=== PATIENT | male | born 1970 | race Hispanic/Latino ===

== ENCOUNTER → 2019-07-02 | Day surgery (SDC) | payer OTHER ==
[~2019-07-02] MED LIST: Ammonium Lactate 12% Lotion TOP; FENTANYL CITRATE/PF 100MCG/2 ML INJ ONE; HYOSCYAMINE 0.125 MG TAB ONE; LACTULOSE20 GM/30 M PO; LEVOTHYROXINE50 MCG PO; MIDAZOLAM HCL 5MG/ML 2ML VIAL ONE; PROPOFOL IV EMULSION 10 MG/ML 50 ML VIAL ONE; XIFAXAN550 MG PO; vit d PO
--- OUTSIDE RECORDS SUMMARY | 2019-07-02 07:12 | XMS REPORT ---
Author Author [facility] Address Unknown Phone Unavailable Care Team Providers Care Hog Trader Name Role Phone FRANSISCO STOLL Unavailable Unavailable Britni WEINSTEIN Unavailable Unavailable Problems This patient has no known problems. Allergies, Adverse Reactions, Alerts This patient has no known allergies or adverse reactions. Medications This patient has no known medications. Results Test Description Test Time Test Comments Text Results Atomic Results Result Comments LIVER SPLEEN IMAGE 2019-06-13 11:53:00 [place] [address] Patient Name: ANGELINA HALL MR #: [id number] : 1970 Age/Sex: 48/M Req #: [id number] [facility] Physician: FRANSISCO STOLL MD Ordered by: JEANNE STOLL MD Report #: [id number] Location: MED/SURG3 Room/Bed: [facility] Procedure: [id number] NM/LIVER SPLEEN IMAGE Exam Date: 06/13/19 Exam Time: 1015 REPORT STATUS: Signed Liver-Spleen Scan Clinical information: 48 M with shaking and disorientation x3 days; concern for liver disease Comparison: Abdominal ultrasound 04/12/2019; CT abdomen/pelvis 04/11/2019 Report: Following intravenous administration of 6 mCi of Tc-99 and sulfur colloid, images of the upper abdomen and lower chest were obtained in multiple projections. The liver mildly reduced in size. The spleen appears normal in size. Distribution of tracer activity is heterogeneous throughout the hepatic parenchyma with two focal areas of relatively increased tracer in the right hepatic lobe. Distribution of tracer in the spleen in homogenous. Increased tracer activity is prominent in marrow and mildly increased tracer is seen in the lungs diffusely. No apparent shift of tracer from the liver is present to suggest hypersplenism. Impression: 1. Findings consistent with moderate cirrhosis of the liver given size of liver and extent of colloid shift to the marrow and lungs. 2. Foci of increased Kupfer cell a ctivity in the right hepatic lobe consistent with foci of liver parenchyma regeneration. 3. Hypersplenism is not present. Signed by: Dr. Kecia Gonzalez M.D. on 06/13/2019 12:13 PM Dictated By: KECIA GONZALEZ MD 121 Transcribed By: KIMBERLY on 06/13/191212 COPY TO: JEANNE STOLL MD CHEST SINGLE (PORTABLE) 2019-06-10 18:54:00 [place] [address] Patient Name: ANGELINA HALL MR #: [id number] : 1970 Age/Sex: 48/M Req #: [id number] Adm Physician: Ordered by: AUDRA RAMIREZ DO Report #: [id number] Location: ER Room/Bed: Procedure: [id number] DX/CHEST SINGLE (PORTABLE) Exam Date: 06/10/19 Exam Time: 1829 REPORT STATUS: Signed EXAM: CHEST SINGLE (PORTABLE) DATE: 06/10/2019 5 :34 PM INDICATION: Sepsis, weakness ORDER PLACED BY [id number] Y COMPARISON: Chest x-ray, 04/15/2019 FINDINGS: Lines and tubes: None. Previous left PICC is no longer seen. Heart size normal. No focal pulmonary opacity, pleural effusion or pneumothorax. Upper abdomen unremarkable. No acute bony abnormality. IMPRESSION: No evidence for acute disease. Signed by: Dr. Rush Tafoya M.D. on 06/10/2019 6:55 PM Dictated By: RUSH TAFOYA MD 54 Transcribed By: KIMBERLY on 06/10/191854 COPY TO: AUDRA RAMIREZ DO CT BRAIN WO 2019-06-10 18:49:00 [place] [address] Patient Name: ANGELINA HALL MR #: [id number] : 1970 Age/Sex: 48/M Req #: [id number] Adm Physician: Ordered by: AUDRA RAMIREZ DO Report #: [id number] Location: ER Room/Bed: Procedure: [id number] CT/CT BRAIN WO Exam Date: 06/10/19 Exam Time: 1830 REPORT STATUS: Signed History: Altered mental status, weakness Comparison studies: Brain MRI on 03/2019 Technique: Axial images were obtained from the skull base to the vertex. Coronal and sagittal reconstructions obtained from the axial data. Dose modulation, iterative reconstruction, and/or weight based adjustment of the mA/kV was utilized to reduce the radiation dose to as low as reasonably achievable. Intravenous contrast: None Findings: Scalp/skull: No abnormalities. No fractures, blastic or lytic lesions. Extra-axial spaces: No masses. No fluid collections. Brain sulci: Appropriate for age. Ventricles: Normal in size and configuration. No hydrocephalus. Parenchyma: No abnormal densities. No masses, hemorrhage, acute or chronic cortical vascular insults. Sellar/suprasellar region: No abnormalities Craniocervical junction: Patent foramen magnum. No Chiari one malformation. Incidental findings: None. IMPRESSION: 1. No abnormalities. 2. No changes when compared to the MRI on 04/12/2019. Signed by: Dr. Denzel Myles M.D. on 06/10/2019 6:51 PM Dictated By: DENZEL MYLES MD, MD 50 Transcribed By: KIMBERLY on 06/10/191850 COPY TO: AUDRA RAMIREZ DO CHEST XRAY LINE PLACEMENT 2019-04-15 19:03:00 [place] [address] Patient Name: ANGELINA HALL MR #: [id number] : 1970 Age/Sex: 48/M Req #: [id number] Adm Physician: EDUIN WEINSTEIN MD Ordered by: RUTH STRONG MD Report #: [id number] Location: ICU Room/Bed: ICU [facility] Procedure: [id number] DX/CHEST XRAY LINE PLACEMENT Exam Date: Exam Time: REPORT STATUS: Signed EXAMINATION: CHEST XRAY LINE PLACEMENT COMPARISON: C T chest and chest x-ray 04/11/2019 INDICATION: Fever, sepsis picc line placement DISCUSSION: Frontal view of the chest obtained at 1848 hours. HEART AND MEDIASTINUM: The heart is enlarged LINES: Left PICC line terminates in the SVC without pneumothorax. LUNGS: Low lung volumes. No pneumonia or pulmonary edema. PLEURA: Left costophrenic angle is sharp. Right lateral costophrenic angle was not included on the image. BONES AND SOFT TISSUES: No focal osseous lesion. The soft tissues are normal. IMPRESSION: Left PICC line terminates in the SVC without pneumothorax. Stable cardiomegaly. No evidence of CHF. No new cardiopulmonary process. Signed by: Dr. Jamee Knight MD on 04/15/2019 7:07 PM Dictated By: JAMEE KNIGHT MD 06 Transcribed By: KIMBERLY on 04/15/191906 COPY TO: RUTH STRONG MD MRI BRAIN WO 2019-04-12 16:18:00 [place] [address] Patient Name: ANGELINA HALL MR #: [id number] : 1970 Age/Sex: 48/M Req #: [id number] Adm Physician: EDUIN WEINSTEIN MD Ordered by: EDUIN WEINSTEIN MD Report #: [id number] Location: ICU Room/Bed: ICU [facility] Procedure: [id number] MRI/MRI BRAIN WO Exam Date: Exam Time: REPORT STATUS: Signed EXAMINATION: MRI of the brain without contrast. HISTORY: Alteration of consciousness, elevated liver enzymes. COMPARISON: Head CT of 04/11/2019. TECHNIQUE: Sagittal T2; axial DWI, T2, FLAIR, T1-IR, T2 gradient echo; coronal FLAIR. IMAGE QUALITY: Motion artifact limits evaluation of some of the sequences. FINDINGS: Parenchyma: 1. No abnormal signal intensity 2. No mass, hemorrhage, acute or chronic infarcts. Skull/scalp: Minimal left parietal and bilateral occipital soft tissues/scalp swelling may be related to trauma or edema. No underlying fracture, which is better evaluated on the prior head CT performed on 04/11/2019 . Vessels: Expected flow voids present in the major arteries and dural sinuses. Extra-axial spaces: No abnormal signal intensity or mass effect. Brain volume: Within normal limits for age. Ventricles: No hydrocephalus or displacement. Foramen magnum: Unremarkable. Sella: Unremarkable. Paranasal / mastoid sinuses: No significant inflammatory disease. IMPRESSION: 1. No intracranial abnormalities, particularly no acute infarct. 2. Nonspecific minimal scalp swelling as above. Signed by: Dr. Bobbi Rincon M.D. on 04/12/2019 4:23 PM Dictated By: BOBBI RINCON MD 22 Transcribed By: KIMBERLY on 04/12/191622 COPY TO: EDUIN WEINSTEIN MD US ABDOMEN COMPLETE 2019-04-12 11:49:00 [place] [address] Patient Name: ANGELINA HALL MR #: [id number] : 1970 Age/Sex: 48/M Req #: [id number] Adm Physician: EDUIN WEINSTEIN MD Ordered by: JANET MATUTE MD Report #: [id number] Location: ICU Room/Bed: ICU [facility] Procedure: [id number] US/US ABDOMEN COMPLETE Exam Date: 04/12/19 Exam Time: 950 REPORT STATUS: Signed EXAM: US ABDOMEN COMPLETE DATE: 04/12/2019 12:00 AM INDICATION: Abnormal liver enzymes COMPARISON: CT abdomen and pelvis of 04/11/2019 TECHNIQUE: Transverse and longitudinal ramirez scale and color doppler sonographic images of the upper abdomen were obtained. FINDINGS: LIVER 14.8 cm in the right midclavicular line. Increased echogenicity of the liver with normal contour, no masses. SPLEEN 14.1 cm in maximum diameter. Normal echogenicity, no masses. GALLBLADDER No gallbladder wall thickening, distension, stone, or pericholecystic fluid. Negative reported sonographic Blake's sign. The gallbladder wall measures 3mm BILE DUCTS No intra nor extra-hepatic biliary dilation. Common bile duct measures 5mm PANCREAS: Visualized portions are normal. RIGHT KIDNEY: 11.2 cm Echogenicity: Normal Collecting System: No hydronephrosis Stones: None Cyst/Mass: None LEFT KIDNEY: 13.4 cm Echogenicity: Normal Collecting System: No hydronephrosis Stones: None Cyst/Mass: None VESSELS: Aorta: Visualized portions are within normal size limits Inferior Vena Cava: Visualized portions are normal Main Portal Vein: 0.9 cm, normal size with hepatopetal flow. FREE FLUID: None IMPRESSION: No cholelithiasis or sonographic evidence of cholecystitis. Hepatic steatosis. Splenomegaly. Signed by: Tatiana Echevarria MD on 04/12/2019 11:51 AM Dictated By: TATIANA ECHEVARRIA MD 1151 Transcribed By: KIMBELRY on 04/12/19 1151 COPY TO: JANET MATUTE MD CT CHEST W 2019-04-11 18:39:00 [place] [address] Patient Name: ANGELINA HALL MR #: [id number] : 1970 Age/Sex: 48/M Req #: [id number] Adm Physician: Ordered by: VAMSI WILLARD MD Report #: [id number] Location: ER Room/Bed: Procedure: [id number] CT/CT CHEST W Exam Date: Exam Time: REPORT STATUS: Signed EXAM: CT Chest, Abdomen and Pelvis WITH contrast INDICATION: SEP SIS, ELEV BILI/AST COMPARISON: Chest radiograph 04/11/2019 TECHNIQUE: Chest, abdomen and pelvis were scanned utilizing a multidetector helical scanner from the lung apex to the ischial tuberosities after administration of IV contrast. Coronal and sagittal reformations were obtained. Routine protocol was performed. Scan was performed when during portal venous phase. IV CONTRAST: 150 mL of Isovue-370 ORAL CONTRAST: None RADIATION DOSE: Total DLP: 1547 mGy*cm Estimated effective dose: DLP x 0.015 mSv COMPLICATIONS: None FINDINGS: LINES and TUBES: None. LUNGS AND AIRWAYS: The lungs and airways are normal. PLEURA: The pleural spaces are clear. HEART AND MEDIASTINUM: The thyroid gland is normal. No mediastinal, hilar or axillary lymphadenopathy. The right atrium is enlarged. The remaining cardiac Nhan appear normal in size. There is no pericardial effusion. The thoracic aorta is unremarkable. No coronary artery calcifications. The main pulmonary artery mildly enlarged, measuring 3.7 cm in diameter and suggestive of pulmonary hypertension. The thoracic aorta and pulmonary arteries are unremarkable. HEPATOBILIARY: No focal hepatic lesions. No biliary ductal dilation. GALLBLADDER: No radio-opaque stones or sludge. No wall thickening. SPLEEN: No splenomegaly. PANCREAS: No focal masses or ductal dilatation. ADRENALS: No adrenal nodules KIDNEYS/URETERS: Kidneys enhance symmetrically. No hydronephrosis. No cystic or solid mass lesions. No stones. Patchy hypodensity throughout both kidneys, some of which appears to represent an artifact while others are highly concerning for pyelonephritis. No surrounding fat stranding or fluid collections. GI TRACT: The stomach is collapsed and difficult to evaluate. No abnormal distention, wall thickening, or evidence of bowel obstruction. Appendix is normal. PELVIC ORGANS/BLADDER: The urinary bladder is collapsed and associated with diffuse severe wall thickening suggestive of chronic inflammation/infection. LYMPH NODES: No lymphadenopathy. VESSELS: Unremarkable. PERITONEUM / RETROPERITONEUM: No free air or fluid. BONES: Unremarkable. SOFT TISSUES: Bilateral gynecomastia. Moderate fat-containing right inguinal hernia . There is tenting of the anterior right lateral wall of the urinary bladder within the herniated sac. IMPRESSION: 1. Patchy hypoperfusion of both kidneys may be due to artifact, but however given the findings in the urinary bladder, this may represent mild bilateral pyelonephritis. Correlate with labs. No visualized calcified stones. 2. Otherwise, no acute abnormalities in the chest, abdomen, or pelvis. 3. Enlarged pulmonary arteries and right atrium suggestive of intracardiac shunt. If this finding is unknown to the patient, recommend further evaluation with echocardiogram. Signed by: Dr. Narda Dennis M.D. on 04/11/2019 6:51 PM Dictated By: NARDA DENNIS MD 50 Transcribed By: KIMBERLY on 04/11/191850 COPY TO: VAMSI WILLARD MD CT ABDOMEN/PELVIS W 2019-04-11 18:39:00 [place] [address] Patient Name: ANGELINA HALL MR #: [id number] : 1970 Age/Sex: 48/M Req #: [id number] Adm Physician: Ordered by: VAMSI WILLARD MD Report #: [id number] Location: ER Room/Bed: Procedure: [id number] CT/CT ABDOMEN/PELVIS W Exam Date: Exam Time: REPORT STATUS: Signed EXAM: CT Chest, Abdomen and Pelvis WITH contrast INDICATION: SEPSIS, ELEV BILI/AST COMPARISON: Chest radiograph 04/11/2019 TECHNIQUE: Chest, abdomen and pelvis were scanned utilizing a multidetector helical scanner from the lung apex to the ischial tuberosities after administration of IV contrast. Coronal and sagittal reformations were obtained. Routine protocol was performed. Scan was performed when during portal venous phase. IV CONTRAST: 150 mL of Isovue-370 ORAL CONTRAST: None RADIATION DOSE: Total DLP: 1547 mGy*cm Estimated effective dose: DLP x 0.015 mSv COMPLICATIONS: None FINDINGS: LINES and TUBES: None. LUNGS AND AIRWAYS: The lungs and airways are normal. PLEURA: The pleural spaces are clear. HEART AND MEDIASTINUM: The thyroid gland is normal. No mediastinal, hilar or axillary lymphadenopathy. The right atrium is enlarged. The remaining cardiac Nhan appear normal in size. There is no pericardial effusion. The thoracic aorta is unremarkable. No coronary artery calcifications. The main pulmonary artery mildly enlarged, measuring 3.7 cm in diameter and suggestive of pulmonary hypertension. The thoracic aorta and pulmonary arteries are unremarkable. HEPATOBILIARY: No focal hepatic lesions. No biliary ductal dilation. GALLBLADDER: No radio-opaque stones or sludge. No wall thickening. SPLEEN: No splenomegaly. PANCREAS: No focal masses or ductal dilatation. ADRENALS: No adrenal nodules KIDNEYS/URETERS: Kidneys enhance symmetrically. No hydronephrosis. No cystic or solid mass lesions. No stones. Patchy hypodensity throughout both kidneys, some of which appears to represent an artifact while others are highly concerning for pyelonephritis. No surrounding fat stranding or fluid collections. GI TRACT: The stomach is collapsed and difficult to evaluate. No abnormal distention, wall thickening, or evidence of bowel obstruction. Appendix is normal. PELVIC ORGANS/BLADDER: The urinary bladder is collapsed and associated with diffuse severe wall thickening suggestive of chronic inflammation/infection. LYMPH NODES: No lymphadenopathy. VESSELS: Unremarkable. PERITONEUM / RETROPERITONEUM: No free air or fluid. BONES: Unremarkable. SOFT TISSUES: Bilateral gynecomastia. Moderate fat-containing right inguinal hernia. There is tenting of the anterior right lateral wall of the urinary bladder within the herniated sac. IMPRESSION: 1. Patchy hypoperfusion of both kidneys may be due to artifact, but however given the findings in the urinary bladder, this may represent mild bilateral pyelonephritis. Correlate with labs. No visualized calcified stones. 2. Otherwise, no acute abnormalities in the chest, abdomen, or pelvis. 3. Enlarged pulmonary arteries and right atrium suggestive of intracardiac shunt. If this finding is unknown to the patient, recommend further evaluation with echocardiogram. Signed by: Dr. Narda Dennis M.D. on 04/11/2019 6:51 PM Dictated By: NARDA DENNIS MD 50 Transcribed By: KIMBERLY on 04/11/191850 COPY TO: VAMSI WILLARD MD CHEST SINGLE (PORTABLE) 2019-04-11 17:28:00 [place] [address] Patient Name: ANGELINA HALL MR #: [id number] : 1970 Age/Sex: 48/M Req #: [id number] Adm Physician: Ordered by: VAMSI WILLARD MD Report #: [id number] Location: ER Room/Bed: Procedure: [id number] DX/CHEST SINGLE (PORTABLE) Exam Date: 04/11/19 Exam Time: 1631 REPORT STATUS: Signed EXAMINATION: CHEST SINGLE (PORTABLE) INDIC ATION: AMS, FEVER [id number] COMPARISON: None FINDINGS: AP view TUBES and LINES: None. LUNGS: Lungs are well inflated. Nonspecific mild increased reticular opacities in the lungs with bilateral hilar peribronchial wall thickening. No lobar consolidations. PLEURA: No pleural effusion or pneumothorax. HEART AND MEDIASTINUM: The cardiac silhouette is prominent likely related to portable technique. BONES AND SOFT TISSUES: No acute osseous lesion. Soft tissues are unremarkable. UPPER ABDOMEN: No free air under the diaphragm. IMPRESSION: Given patient's fever, findings may reflect acute viral pneumonia. Recommend follow-up chest radiograph in 4-6 weeks. Signed by: Dr. Narda Dennis M.D. on 04/11/2019 5:31 PM Dictated By: NARDA DENNIS MD 30 Transcribed By: KIMBERLY on 04/11/191730 COPY TO: VAMSI WILLARD MD CT BRAIN WO 2019-04-11 16:52:00 [place] [address] Patient Name: ANGELINA HALL MR #: [id number] : 1970 Age/Sex: 48/M Req #: [id number] [facility] Physician: Ordered by: VAMSI WILLARD MD Report #: [id number] Location: Room/Bed: Procedure: [id number] CT/CT BRAIN WO Exam Date: 04/11/19 Exam Time: 1631 REPORT STATUS: Signed EXAMINATION: Head CT HISTORY: Alteration of consciousnes s, unresponsive, blood in the oral cavity COMPARISON: None. TECHNIQUE: Multidetector axial images were obtained without contrast from the foramen magnum to the vertex . The images were reconstructed using brain and bone algorithms. Thin section brain images were reformatted into coronal and sagittal planes. Image quality: Motion/streaking artifact limits the evaluation of the skull base and posterior cranial fossa. Dose modulation, iterative reconstruction, and/or weight based adjustment of the mA/kV was utilized to reduce the radiation dose to as low as reasonably achievable. FINDINGS: Parenchyma: 1. No abnormal densities. 2. No mass or hemorrhage. No CT evidence of acute territorial vascular insult. Extra-axial spaces:No abnormal density. No extra-axial fluid collections Brain volume: Normal for age. Ventricles: No hydrocephalus or displacement. Arteries: No density suggestive of thrombus. Dural sinuses: No abnormal density. Foramen magnum: No mass, Chiari malformation, or basilar invagination. Sella: No obvious mass. Paranasal/mastoid sinuses: Imaged portions unremarkable. Skull/Scalp: No lytic or blastic lesions. No fractures. IMPRESSION: No intracranial abnormalities. Signed by: Dr. Bobbi Rincon M.D. on 04/11/2019 4:54 PM Dictated By: BOBBI RINCON MD 53 Transcribed By: KIMBERLY on 04/11/191653 COPY TO: VAMSI WILLARD MD
[2019-07-02 10:25] VITALS: BP 127/77
[2019-07-02 17:03] LABS: C DIFFICILE TOXIN A&B AMP PROB NEGATIVE (NEGATIVE); WBC,FECAL (FECAL LACTOFERRIN) NEGATIVE (NEGATIVE)
--- NOTE | 2019-07-19 08:03 | Operative Report ---
DATE OF PROCEDURE: 07/02/2019 SURGEON: Jun Noyola MD PROCEDURE: EGD with biopsies and a colonoscopy with biopsies INDICATIONS FOR EGD: Anemia, blood in stool. INDICATIONS FOR COLONOSCOPY: Anemia, blood in stools. MEDICATIONS: The patient was done under MAC. Please see anesthesiologist's note. PROCEDURE IN DETAIL: With the patient in left lateral decubitus position, a flexible fiberoptic Olympus gastroscope was introduced into the esophagus under direct visualization without any difficulty. There was some patchy erythema noted in distal esophagus. The scope was then advanced with ease into the stomach. Mucosa overlying the antrum and the body revealed some patchy erythema and low-grade edema and biopsies were obtained sent to stain for H. pylori. The pylorus was of normal contour and shape. It was intubated with ease and the scope was advanced all the way to the second portion of the duodenum. The scope was then withdrawn slowly and the mucosa overlying the proximal second portion and duodenal bulb grossly were unremarkable. Biopsies were obtained to rule out sprue. The scope was then withdrawn back into the stomach and retroflexed and mucosa overlying the fundus and the cardia appeared to be within normal limits. The scope was then straightened out. It was subsequently withdrawn. The patient tolerated the procedure well. IMPRESSION: 1. Distal esophagitis, mild. 2. Gastritis, biopsied. Biopsies sent to stain for Helicobacter pylori. 3. Rule out sprue. PLAN: Follow up histology. Initiate Protonix 40 mg 1 p.o. q.a.m. a.c. The patient was then turned around. After adequate lubrication of the anal canal, a flexible fiberoptic Olympus colonoscope was inserted into the rectum with ease and advanced all the way to the cecum. The ileocecal valve appeared to be within normal limits as well as the cecum and the ileocecal valve was intubated and the scope was advanced into the terminal ileum. Biopsies were obtained. The scope was then withdrawn back into the colon. It was then withdrawn slowly. Mucosa overlying the ascending and the transverse appeared to be within normal limits. There was some patchy mild inflammatory changes noted in the left colon as well as the rectum and random biopsies were obtained. The scope was then retroflexed into the distal rectum and small internal hemorrhoids were noted, none of which was actively bleeding. The scope was then straightened out. It was subsequently withdrawn. The patient tolerated the procedure well. IMPRESSION: 1. Colitis, patchy, mild, primarily involving the left colon. 2. Proctitis, mild. 3. Internal hemorrhoids, none actively bleeding. PLAN: Follow up histology. Follow up stool studies. Check IBD panel, CRP, and sedimentation rate. MD FREDRICK Levin/MODL /[id number] cc: Jacques Urias DO
== END | disposition home or self-care (01) ==
LOC: OR 07:10
PROVIDERS: ATTEND Internal Medicine Gastroenterology
DX: D64.9 Anemia, unspecified (principal); K29.50 Unspecified chronic gastritis without bleeding; K29.80 Duodenitis without bleeding; K52.9 Noninfective gastroenteritis and colitis, unspecified; K20.9 Esophagitis, unspecified; K62.89 Other specified diseases of anus and rectum; K64.8 Other hemorrhoids; R19.5 Other fecal abnormalities; K74.60 Unspecified cirrhosis of liver; R03.0 Elevated blood-pressure reading, without diagnosis of hypertension; E03.9 Hypothyroidism, unspecified; Z68.36 Body mass index [BMI] 36.0-36.9, adult
CPT/HCPCS: 36415; 43239; 45380; 83630; 83993; 85651; 86140; 86256; 86671; 87045; 87177; 87328; 87493; J2250; J2704; J3010; 45378

== ENCOUNTER 2019-07-06 13:04 | Inpatient (IN) | payer OTHER ==
[~2019-07-06] VITALS: Ht 167.6 cm; Wt 99.8 kg
[~2019-07-06 13:04] MED LIST changes: -Ammonium Lactate 12% Lotion TOP; -FENTANYL CITRATE/PF 100MCG/2 ML INJ ONE; -HYOSCYAMINE 0.125 MG TAB ONE; -LACTULOSE20 GM/30 M PO; -MIDAZOLAM HCL 5MG/ML 2ML VIAL ONE; -PROPOFOL IV EMULSION 10 MG/ML 50 ML VIAL ONE; -XIFAXAN550 MG PO
[2019-07-06 13:32] LABS: BASOPHILS % 1.1 % (0.0-1.0); EOSINOPHILS # (AUTO) 0.1 (0.0-0.4); EOSINOPHILS % 2.2 % (0.0-6.0); HEMATOCRIT 35.8 % (38.2-49.6); HEMOGLOBIN 13.1 g/dL (14.0-18.0); LYMPHOCYTES # (AUTO) 1.2 (1.0-3.2); LYMPHOCYTES % 33.1 % (18.0-39.1); MEAN CORPUSCULAR HEMOGLOBIN 34.2 pg (28-32); MEAN CORPUSCULAR HGB CONC 36.6 g/dL (31-35); MEAN CORPUSCULAR VOLUME 93.5 fL (81-99); MONOCYTES # (AUTO) 0.2 (0.2-0.8); MONOCYTES % 6.3 % (4.4-11.3); NEUTROPHILS # (AUTO) 2.1 (2.1-6.9); NEUTROPHILS % 56.8 % (38.7-80.0); PLATELET COUNT 89 x10e3/uL (140-360); RED BLOOD COUNT 3.83 x10e6/uL (4.3-5.7); RED CELL DISTRIBUTION WIDTH 13.1 % (11.7-14.4)
[2019-07-06 13:45] LABS: INR 1.17; PROTHROMBIN TIME 15.7 seconds (11.9-14.5)
[2019-07-06 13:46] LABS: PARTIAL THROMBOPLASTIN TIME 40.5 seconds (23.8-35.5)
[2019-07-06 13:50] LABS: ALANINE AMINOTRANSFERASE 15 IU/L (0-55); ALBUMIN 3.7 g/dL (3.5-5.0); ALKALINE PHOSPHATASE 84 IU/L (40-150); ANION GAP 10.8 mmol/L (8-16); BLOOD UREA NITROGEN 13 mg/dL (7-26); BUN/CREATININE RATIO 17 (6-25); CALCIUM 8.8 mg/dL (8.4-10.2); CARBON DIOXIDE 29 mmol/L (22-29); CHLORIDE 106 mmol/L (98-107); CREATINE KINASE 143 IU/L (30-200); CREATININE, SERUM 0.76 mg/dL (0.72-1.25); EST GLOMERULAR FILTRATION RATE > 60 ML/MIN (60-); GLUCOSE 105 mg/dL (74-118); POTASSIUM 3.8 mmol/L (3.5-5.1); SODIUM 142 mmol/L (136-145)
--- NOTE | 2019-07-06 14:29 | Diagnostic Imaging Report ---
History: Weakness Comparison studies: None Technique: Axial images were obtained from the skull base to the vertex. Coronal and sagittal reconstructions obtained from the axial data. Dose modulation, iterative reconstruction, and/or weight based adjustment of the mA/kV was utilized to reduce the radiation dose to as low as reasonably achievable. Findings: PA and hardening artifact limits the evaluation at the inferior images. Scalp/skull: No abnormalities. No fractures, blastic or lytic lesions. Extra-axial spaces: No masses. No fluid collections. Brain sulci: Appropriate for age. Ventricles: Normal in size and configuration. No hydrocephalus. Parenchyma: No abnormal densities. No masses, hemorrhage, acute or chronic cortical vascular insults. Sellar/suprasellar region: No abnormalities Craniocervical junction: Patent foramen magnum. No Chiari one malformation. IMPRESSION: No abnormalities . Signed by: DR Jorge Estrella M.D. on 07/06/2019 2:26 PM
--- NOTE | 2019-07-06 14:33 | Diagnostic Imaging Report ---
TECHNIQUE: Frontal view of the chest. INDICATION: ^WEAK ^[id number] ^1350 COMPARISON: None. IMPRESSION: Lines and hardware: None. Heart and mediastinum: Unremarkable. Lungs and pleura: No focal airspace consolidation. No pleural effusion. No pneumothorax. Soft tissues and bones: No acute abnormality. Signed by: Cooper Strong MD on 07/06/2019 2:29 PM
--- NOTE | 2019-07-06 15:00 | NUR ---
pt arrived to unit, via stretcher, resp even and unlabored at this time, pt unable to make needs known at this time, pt is a poor historian.
--- NOTE | 2019-07-06 15:00 | NUR ---
bed in lowest position, bed rails up x2, call light in reach, will cont to monitor.
[2019-07-06 16:30] VITALS: BP 142/86
[2019-07-06] MEDS ORDERED: ONDANSETRON HCL INJ 2MG/ML 2ML 2 MG/ML VIAL IV PRN (16:45)
[2019-07-06] MEDS ORDERED: ACETAMINOPHEN 325 MG TAB PO PRN (16:45)
[2019-07-06] MEDS ORDERED: LACTULOSE SYRUP 20 GM/30 ML UDC PO SCH (17:00)
[2019-07-06 19:15] VITALS: BP 182/88
--- NOTE | 2019-07-06 19:15 | NUR ---
attempted to complete initial nursing admit assessment. difficult obtaining some information due to patient altered mental status.
--- NOTE | 2019-07-06 19:15 | NUR ---
patient received lying quietly in bed. patient responsive to verbal stimuli. no signs of pain/discomfort. pm assessment complete. side rails up x 3. bed alarm on for safety.
--- NOTE | 2019-07-06 19:40 | NUR ---
report given to oncoming nurse ,walking rounds complete.
[2019-07-06 20:00] VITALS: BP 179/84
--- NOTE | 2019-07-06 20:20 | NUR ---
Spoke to pt family member pt. Mother received mas much information as possible. pt family member stated pt is unable to answer anything about his self.
[2019-07-06] MEDS: HYDRALAZINE HCL 20 MG/ML VIAL IV PRN (20:40)
[2019-07-06 21:47] VITALS: BP 182/88
[2019-07-07] VITALS (7 sets, daily range): BP systolic 139–172; BP diastolic 63–86
[2019-07-07] MEDS: HYDRALAZINE HCL 20 MG/ML VIAL IV PRN (05:44)
[2019-07-07] MEDS: LEVOTHYROXINE SODIUM 50 MCG TAB PO SCH (05:44)
[2019-07-07 06:05] LABS: BASOPHILS % 1.4 % (0.0-1.0); EOSINOPHILS # (AUTO) 0.1 (0.0-0.4); EOSINOPHILS % 3.4 % (0.0-6.0); HEMATOCRIT 33.9 % (38.2-49.6); LYMPHOCYTES # (AUTO) 1.2 (1.0-3.2); LYMPHOCYTES % 42.4 % (18.0-39.1); MEAN CORPUSCULAR HEMOGLOBIN 33.9 pg (28-32); MEAN CORPUSCULAR HGB CONC 35.4 g/dL (31-35); MEAN CORPUSCULAR VOLUME 95.8 fL (81-99); MONOCYTES # (AUTO) 0.2 (0.2-0.8); MONOCYTES % 7.6 % (4.4-11.3); NEUTROPHILS # (AUTO) 1.3 (2.1-6.9); NEUTROPHILS % 45.2 % (38.7-80.0); PLATELET COUNT 68 x10e3/uL (140-360); RED BLOOD COUNT 3.54 x10e6/uL (4.3-5.7); RED CELL DISTRIBUTION WIDTH 13.1 % (11.7-14.4)
[2019-07-07 06:27] LABS: ALANINE AMINOTRANSFERASE 13 IU/L (0-55); ALBUMIN 3.4 g/dL (3.5-5.0); ALBUMIN/GLOBULIN RATIO 1.1 (0.8-2.0); ALKALINE PHOSPHATASE 63 IU/L (40-150); ANION GAP 8.9 mmol/L (8-16); BLOOD UREA NITROGEN 12 mg/dL (7-26); BUN/CREATININE RATIO 20 (6-25); CALCIUM 7.3 mg/dL (8.4-10.2); CARBON DIOXIDE 25 mmol/L (22-29); CHLORIDE 108 mmol/L (98-107); CREATININE, SERUM 0.61 mg/dL (0.72-1.25); EST GLOMERULAR FILTRATION RATE > 60 ML/MIN (60-); GLUCOSE 83 mg/dL (74-118); MAGNESIUM 1.8 MG/DL (1.3-2.1); POTASSIUM 3.9 mmol/L (3.5-5.1); SODIUM 138 mmol/L (136-145)
[2019-07-07 06:37] LABS: THYROID STIMULATING HORMONE 0.744 uIU/mL (0.350-4.940)
--- NOTE | 2019-07-07 08:20 | NUR ---
The pt. is awake and attempting to get out of bed. He was moved closer to the station for better observation.
[2019-07-07] MEDS: LACTULOSE SYRUP 20 GM/30 ML UDC PO SCH ×2 (09:30→21:00)
[2019-07-07] MEDS ORDERED: RIFAXIMIN 200 MG TAB PO SCH (17:00)
[2019-07-07] MEDS: RIFAXIMIN 550 MG TABLET PO SCH (18:22)
--- NOTE | 2019-07-07 20:00 | NUR ---
Received change of shift report from AM nurse. Walking rounds completed.
--- NOTE | 2019-07-07 21:21 | Consultation ---
DATE OF CONSULTATION: Wound Consultation REASON FOR CONSULTATION: Recent abnormal skin rash and pigmented left leg. HISTORY OF PRESENT ILLNESS: A 48-year-old male patient admitted with altered mental status. The patient has thrombocytopenia and elevated ammonia more than 250, being treated for hepatic encephalopathy. The patient's platelet and also white count was 2.9. The patient arousable, not able to give any history, lethargic, cognitively impaired, bed-bound, incontinent. The patient has flaky and dry peeling skin involving extremities, abdomen consistent with ichthyosis vulgaris. Left leg has post stasis heme pigmentation from probably venous insufficiency. PAST MEDICAL HISTORY: Hypothyroidism and recent diagnosis of cirrhosis, thrombocytopenia. PERSONAL HISTORY: Denies smoking, alcohol. REVIEW OF SYSTEMS: Limited. The patient cognitively impaired. Cause of cirrhosis unknown. PHYSICAL EXAMINATION: GENERAL: Height 66 inches, weight 220 pounds. HEENT: Normal. NECK: No JVD. LUNGS: Diminished air entry at the bases. CVS: Normal. ABDOMEN: Soft. No ascites. No mass palpable. EXTREMITIES: Lower extremities trace edema present. SKIN: The patient has scaly skin and fish scale appearance consistent with ichthyosis. ASSESSMENT: Ichthyosis vulgaris. PLAN: Recommend salicylates left leg heme pigmentation secondary to venous insufficiency. No open wound noted at this time. PLAN: We will continue to monitor. Workup for cirrhosis and treatment. Thank you for consultation. Katarzyna Mccartney MD TG/MODL /[id number]
--- NOTE | 2019-07-07 22:00 | NUR ---
Patient had a medAbebe Galvan with blood present. Assessed patients lab. Will inform MD. Patient continue to be confused. Bed alarm on. Continue monitor.
[2019-07-08] VITALS (9 sets, daily range): BP systolic 122–157; BP diastolic 68–92
--- NOTE | 2019-07-08 01:00 | NUR ---
Dr Kimberly Noyola on the floor to see patient. Orders written and completed. Informed Dr Noyola of blood in patients stool. aware. Vit K ordered and given. Patient tolerated well. Given via right upper arm. Patient repositioned in bed.
[2019-07-08] MEDS ORDERED: PHYTONADIONE 10 MG/ML AMP SQ ONE ×2 (01:15→09:00)
[2019-07-08] MEDS: LEVOTHYROXINE SODIUM 50 MCG TAB PO SCH (05:07)
[2019-07-08 06:05] LABS: BASOPHILS % 0.9 % (0.0-1.0); EOSINOPHILS # (AUTO) 0.1 (0.0-0.4); EOSINOPHILS % 3.1 % (0.0-6.0); HEMATOCRIT 35.2 % (38.2-49.6); HEMOGLOBIN 12.3 g/dL (14.0-18.0); LYMPHOCYTES # (AUTO) 1.4 (1.0-3.2); LYMPHOCYTES % 39.6 % (18.0-39.1); MEAN CORPUSCULAR HEMOGLOBIN 33.2 pg (28-32); MEAN CORPUSCULAR HGB CONC 34.9 g/dL (31-35); MEAN CORPUSCULAR VOLUME 95.1 fL (81-99); MONOCYTES # (AUTO) 0.3 (0.2-0.8); MONOCYTES % 7.7 % (4.4-11.3); NEUTROPHILS # (AUTO) 1.7 (2.1-6.9); NEUTROPHILS % 48.4 % (38.7-80.0); PLATELET COUNT 83 x10e3/uL (140-360)
[2019-07-08 06:11] LABS: ALANINE AMINOTRANSFERASE 13 IU/L (0-55); ALBUMIN 3.5 g/dL (3.5-5.0); ALKALINE PHOSPHATASE 64 IU/L (40-150); ANION GAP 10.6 mmol/L (8-16); BLOOD UREA NITROGEN 11 mg/dL (7-26); BUN/CREATININE RATIO 15 (6-25); CALCIUM 8.5 mg/dL (8.4-10.2); CARBON DIOXIDE 24 mmol/L (22-29); CHLORIDE 108 mmol/L (98-107); CREATININE, SERUM 0.71 mg/dL (0.72-1.25); EST GLOMERULAR FILTRATION RATE > 60 ML/MIN (60-); GLUCOSE 85 mg/dL (74-118); POTASSIUM 3.6 mmol/L (3.5-5.1); SODIUM 139 mmol/L (136-145)
--- NOTE | 2019-07-08 06:34 | NUR ---
Patient up ambulating to bathroom with asst. Patient continue to be confused.
[2019-07-08] MEDS: AMMONIUM LACTATE 12% LOTION 225GM BTL TOP SCH ×2 (10:00→17:33)
[2019-07-08] MEDS: RIFAXIMIN 550 MG TABLET PO SCH ×2 (10:00→17:33)
[2019-07-08] MEDS: LACTULOSE SYRUP 20 GM/30 ML UDC PO SCH ×3 (10:00→21:00)
--- NOTE | 2019-07-08 10:30 | NUR ---
PHYSICAL THERAPY AT BEDSIDE. PT SITTING UP IN RECLINER. DOING WELL.
--- NOTE | 2019-07-08 11:05 | NUR ---
Pt. expressed no spiritual or emotional concerns at this time. Stage Producer provided hospitality and information on how to reach fence making machine operator, if needed. No need to follow at this time. FUENTES DAVENPORT Stage Producer Spiritual Care Department O: [phone]
--- NOTE | 2019-07-08 15:01 | NUR ---
FLASH WELDER WITH [employer] CALLED OFFERING ASSISTANCE WITH ANY DC NEEDS CARLOS [phone]
--- NOTE | 2019-07-08 16:06 | NUR ---
Nutrition Screen Note RD Recommendation for Physician: - Continue diet as ordered Plan of Care: RD following, monitoring for tolerance and adequacy Nutrition reason for involvement: Nutrition risk trigger MST Primary Diagnose(s): hepatic encephalopathy, cirrhosis PMH: Hypothyroidism, cirrhosis, thrombocytopenia Ht: 66in Wt: 220lb BMI: 35.5kg/m2 IBW: 142lb +/- 10% RD Assessment: (07/07) Chart reviewed. Labs and meds reviewed. 48yo M, who was admitted for AMS. Ammonia level has normalized. Lactulose was given. Visited pt in the room. Pt is awake, alert and answering questions appropriately during my time of visit. Pt reported good appetite without any nausea or vomiting. Pt denied any chewing or swallowing difficulty. No recent weight loss reported. Will continue to monitor and follow. Current Diet: cardiac diet Malnutrition Evaluation (07/08/2019) The patient does not meet criteria for a specified degree of malnutrition at this time. Will re-evaluate at follow-up as appropriate. Diet Education Needs Assessment: Diet education not indicated. Nutrition Care Level: low Signed: Darlene Desir, MS, RD, LD
--- NOTE | 2019-07-08 17:54 | NUR ---
pt resting in bed. Resp even no distress. Denies of any discomfort.
--- NOTE | 2019-07-08 20:01 | NUR ---
Received change of shift report from AM nurse. Walking rounds completed.
[2019-07-09] VITALS: BP 122/66
--- NOTE | 2019-07-09 | NUR ---
Patient up sitting in a chair. AAOx3. Denies pain at this time. S/W family on telephone.
[2019-07-09 04:00] VITALS: BP 136/71
--- NOTE | 2019-07-09 04:19 | NUR ---
Patient resting quitly at this time.
--- NOTE | 2019-07-09 04:50 | NUR ---
Patient resting quitly in bed.
[2019-07-09 05:37] LABS: BASOPHILS % 1.1 % (0.0-1.0); EOSINOPHILS # (AUTO) 0.2 (0.0-0.4); EOSINOPHILS % 4.5 % (0.0-6.0); HEMATOCRIT 34.7 % (38.2-49.6); HEMOGLOBIN 12.2 g/dL (14.0-18.0); LYMPHOCYTES # (AUTO) 1.6 (1.0-3.2); LYMPHOCYTES % 45.9 % (18.0-39.1); MEAN CORPUSCULAR HEMOGLOBIN 33.3 pg (28-32); MEAN CORPUSCULAR HGB CONC 35.2 g/dL (31-35); MEAN CORPUSCULAR VOLUME 94.8 fL (81-99); MONOCYTES # (AUTO) 0.3 (0.2-0.8); MONOCYTES % 7.9 % (4.4-11.3); NEUTROPHILS # (AUTO) 1.4 (2.1-6.9); NEUTROPHILS % 40.6 % (38.7-80.0); PLATELET COUNT 88 x10e3/uL (140-360); RED BLOOD COUNT 3.66 x10e6/uL (4.3-5.7); RED CELL DISTRIBUTION WIDTH 13.2 % (11.7-14.4)
[2019-07-09] MEDS: LEVOTHYROXINE SODIUM 50 MCG TAB PO SCH (06:00)
[2019-07-09 06:06] LABS: ANION GAP 7.5 mmol/L (8-16); BLOOD UREA NITROGEN 20 mg/dL (7-26); BUN/CREATININE RATIO 20 (6-25); CALCIUM 8.8 mg/dL (8.4-10.2); CARBON DIOXIDE 25 mmol/L (22-29); CHLORIDE 109 mmol/L (98-107); CREATININE, SERUM 0.98 mg/dL (0.72-1.25); EST GLOMERULAR FILTRATION RATE > 60 ML/MIN (60-); GLUCOSE 84 mg/dL (74-118); PHOSPHORUS 4.8 MG/DL (2.3-4.7); POTASSIUM 3.5 mmol/L (3.5-5.1); SODIUM 138 mmol/L (136-145)
--- NOTE | 2019-07-09 07:40 | NUR ---
PATIENT IS AWAKE, ALERT, AND IN STABLE CONDITION WITH NO S/S OF RESPIRATORY DISTRESS. NO PAIN VOICED. LOWER EXTREMITIES ARE SCALY AND DRY WITH THE LEFT LOWER EXTREMITY BEING ROUGH IN TEXTURE. TELEMETRY APPLIED. CALL LIGHT IS WITHIN REACH, PATIENT INSTRUCTED TO CALL FOR ASSISTANCE NEEDED.
[2019-07-09 08:11] VITALS: BP 129/90
[2019-07-09] MEDS: AMMONIUM LACTATE 12% LOTION 225GM BTL TOP SCH (08:40)
[2019-07-09] MEDS: RIFAXIMIN 550 MG TABLET PO SCH (08:40)
[2019-07-09] MEDS: LACTULOSE SYRUP 20 GM/30 ML UDC PO SCH (08:41)
[2019-07-09] MEDS ORDERED: XIFAXAN550 MG PO (09:35)
[2019-07-09] MEDS ORDERED: Ammonium Lactate 12% Lotion TOP (09:35)
[2019-07-09] MEDS ORDERED: LACTULOSE20 GM/30 M PO (09:35)
[2019-07-09] MEDS ORDERED: ONDANSETRON HCL 4 MG ORAL DISINTEGRATING TAB PO PRN (09:45)
[2019-07-09 10:25] VITALS: BP 129/90
[2019-07-09 11:54] VITALS: BP 126/73
--- NOTE | 2019-07-09 13:04 | NUR ---
PATIENT DISCHARGE HOME- PATIENT OFF THE UNIT AT 1252 PER WHEELCHAIR ACCOMPANIED BY STAFF MEMBER TO THE FRONT LOBBY. PATIENT IN STABLE CONDITION WITH NO S/S OF RESPIRATORY DISTRESS. NO PAIN VOICED. IV REMOVED WITH TIP INTACT. DISCHARGE TEACHING, INSTRUCTIONS, AND MEDICATIONS GIVEN TO THE PATIENT.
--- NOTE | 2019-07-12 12:43 | Discharge Summary ---
PERTINENT HISTORY AND PHYSICAL FINDINGS/CHIEF COMPLAINT: Mr. Land is a 48-year-old male, who was brought to the emergency department with altered mental status. PAST MEDICAL HISTORY: Cirrhosis, hypothyroidism, and anemia. PAST SURGICAL HISTORY: Noncontributory. FAMILY HISTORY: Noncontributory. SOCIAL HISTORY: Noncontributory. ALLERGIES: NO KNOWN ALLERGIES. ADMITTING DIAGNOSES: 1. Cirrhosis with hepatic encephalopathy. 2. Hypothyroidism. 3. Scaly legs. 4. Obesity with BMI 35.5. DISCHARGE DIAGNOSES: 1. Cirrhosis with hepatic encephalopathy. 2. Hyperammonemia. 3. Hypothyroidism. 4. 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 5. Depression. 6. Obesity with BMI of 35.5. On admission WBCs 3.66, hemoglobin 13.1, hematocrit 35.8, and platelets 89. Sodium 142, potassium 3.8, BUN 13, creatinine 0.76, GFR greater than 60. Total bilirubin 1.8, AST 35, ALT 15, alkaline phosphatase 84, ammonia level 258. Cardiac biomarkers were negative. During his stay, the hemoglobin A1c was 4.4% on July 06 and the TSH was 0.744. The patient's ammonia level gradually improved to 75, which was today. Also today, BUN 20, creatinine 0.98, GFR greater than 60. Potassium level 3.5. Chest x-ray had shown no acute abnormality and CT of the brain had shown no abnormality. CONSULTING PHYSICIANS: Include: 1. Dr. Jun Noyola. 2. Dr. Mccartney. During his stay, the patient was on lactulose and Xifaxan, and the patient's altered mental status improved as his ammonia level improved. Levothyroxine was continued for hypothyroidism. The patient will continue on a cardiac diet. Activity level as tolerated. He is to follow up with his PCP, Dr. Jacques Urias in 1 to 2 weeks. We will send him home on the Xifaxan 550 mg p.o. b.i.d., lactulose 20 g t.i.d., ammonium lactate 12% lotion 1 g topical b.i.d. for probable ichthyosis vulgaris. The patient is to call Dr. Noyola for a followup appointment and follow with him closely. All questions answered. No change in physical examination. Dictated by Heath Lal, ROLL ON MAN MD LING Castellon/CHASE /[id number]
== END 2019-07-09 12:52 | disposition home or self-care (01) | DRG 441 ==
LOC: ER 13:04 → ERHOLD 14:02 → MED/SURG3 15:29
PROVIDERS: ADMIT Internal Medicine; ATTEND Internal Medicine
DX: K75.81 Nonalcoholic steatohepatitis (NASH) (principal); K72.00 Acute and subacute hepatic failure without coma; G93.41 Metabolic encephalopathy; E72.20 Disorder of urea cycle metabolism, unspecified; E03.9 Hypothyroidism, unspecified; E66.9 Obesity, unspecified; Z68.35 Body mass index [BMI] 35.0-35.9, adult; D64.9 Anemia, unspecified; Q80.0 Ichthyosis vulgaris; E78.5 Hyperlipidemia, unspecified; F32.9 Major depressive disorder, single episode, unspecified
CPT/HCPCS: 36415; 70450; 71045; 80048; 80053; 82140; 82550; 82553; 82948; 83036; 83735; 84100; 84443; 84484; 85025; 85610; 85730; 86850; 86900; 93005; 97139; 99284; J0360; J3430

== ENCOUNTER 2020-04-25 07:56 | Inpatient (IN) | payer OTHER ==
[~2020-04-25] VITALS: Ht 167.6 cm; Wt 112.9 kg
[~2020-04-25 07:56] MED LIST changes: +Ammonium Lactate 12% Lotion TOP; +LACTULOSE20 GM/30 M PO; +XIFAXAN550 MG PO
[2020-04-25 08:58] LABS: BASOPHILS % 0.8 % (0.0-1.0); EOSINOPHILS % 0.4 % (0.0-6.0); HEMOGLOBIN 12.7 g/dL (14.0-18.0); LYMPHOCYTES # (AUTO) 1.2 (1.0-3.2); LYMPHOCYTES % 23.4 % (18.0-39.1); MEAN CORPUSCULAR HEMOGLOBIN 34.1 pg (28-32); MEAN CORPUSCULAR HGB CONC 35.3 g/dL (31-35); MEAN CORPUSCULAR VOLUME 96.8 fL (81-99); MONOCYTES # (AUTO) 0.4 (0.2-0.8); MONOCYTES % 8.4 % (4.4-11.3); NEUTROPHILS # (AUTO) 3.5 (2.1-6.9); NEUTROPHILS % 66.6 % (38.7-80.0); PLATELET COUNT 67 x10e3/uL (140-360); RED BLOOD COUNT 3.72 x10e6/uL (4.3-5.7); RED CELL DISTRIBUTION WIDTH 15.1 % (11.7-14.4)
[2020-04-25 09:20] LABS: ALANINE AMINOTRANSFERASE 22 IU/L (0-55); ALBUMIN 3.5 g/dL (3.5-5.0); ALBUMIN/GLOBULIN RATIO 0.9 (0.8-2.0); ALKALINE PHOSPHATASE 140 IU/L (40-150); ANION GAP 16.2 mmol/L (8-16); BLOOD UREA NITROGEN 17 mg/dL (7-26); BUN/CREATININE RATIO 21 (6-25); CALCIUM 8.1 mg/dL (8.4-10.2); CARBON DIOXIDE 20 mmol/L (22-29); CHLORIDE 106 mmol/L (98-107); CREATINE KINASE 597 IU/L (30-200); CREATININE, SERUM 0.81 mg/dL (0.72-1.25); EST GLOMERULAR FILTRATION RATE > 60 ML/MIN (60-); GLUCOSE 95 mg/dL (74-118); POTASSIUM 4.2 mmol/L (3.5-5.1); SODIUM 138 mmol/L (136-145)
[2020-04-25] MEDS ORDERED: CEFTRIAXONE SOD 1 GM/NS 50 ML 50 ML IV ONE (09:50)
[2020-04-25] MEDS ORDERED: ACETAMINOPHEN 325 MG TAB PO ONE (09:50)
[2020-04-25] MEDS ORDERED: ACETAMINOPHEN 325 MG TAB ONE (09:56)
[2020-04-25 09:59] LABS: ABG PCO2 29 mmHg (35-45); ABG PH 7.45 (7.35-7.45); ABG PO2 68 mmHg (80-105)
[2020-04-25 10:00] LABS: ABG HCO3 21 mmol/L (22-26); ABG TCO2 21
[2020-04-25] MEDS ORDERED: LACTULOSE SYRUP 20 GM/30 ML UDC PO ONE (10:00)
[2020-04-25] MEDS ORDERED: LACTATED RINGER'S 1,000 ML INJ ONE ×2 (10:00)
[2020-04-25] MEDS ORDERED: ONDANSETRON HCL INJ 2MG/ML 2ML 2 MG/ML VIAL IV STA (10:24)
[2020-04-25] MEDS: SODIUM CHLORIDE 0.9% 1000ML 1,000 ML IV SCH ×2 (11:00→18:26)
[2020-04-25] MEDS ORDERED: SODIUM CHLORIDE 0.9% 50ML 50 ML ONE (11:08)
[2020-04-25] MEDS ORDERED: IOPAMIDOL 370 MG/ML 200 ML INFUS..BTL INJ ONE (11:09)
[2020-04-25 20:25] LABS: CREATINE KINASE MB 1.3 ng/mL (0-5.0)
[2020-04-25 22:40] VITALS: BP 118/72
[2020-04-26] MEDS: SODIUM CHLORIDE 0.9% 1000ML 1,000 ML IV SCH ×3 (02:15→10:15)
[2020-04-26 04:00] VITALS: BP 132/69
[2020-04-26 05:10] LABS: BASOPHILS % 0.8 % (0.0-1.0); EOSINOPHILS # (AUTO) 0.1 (0.0-0.4); HEMATOCRIT 30.5 % (38.2-49.6); HEMOGLOBIN 10.6 g/dL (14.0-18.0); LYMPHOCYTES % 41.8 % (18.0-39.1); MEAN CORPUSCULAR HEMOGLOBIN 34.6 pg (28-32); MEAN CORPUSCULAR HGB CONC 34.8 g/dL (31-35); MEAN CORPUSCULAR VOLUME 99.7 fL (81-99); MONOCYTES # (AUTO) 0.3 (0.2-0.8); NEUTROPHILS # (AUTO) 1.1 (2.1-6.9); PLATELET COUNT 50 x10e3/uL (140-360); RED BLOOD COUNT 3.06 x10e6/uL (4.3-5.7); RED CELL DISTRIBUTION WIDTH 14.7 % (11.7-14.4)
[2020-04-26 05:24] LABS: ALANINE AMINOTRANSFERASE 19 IU/L (0-55); ALBUMIN 2.7 g/dL (3.5-5.0); ALBUMIN/GLOBULIN RATIO 0.9 (0.8-2.0); ALKALINE PHOSPHATASE 94 IU/L (40-150); BLOOD UREA NITROGEN 17 mg/dL (7-26); BUN/CREATININE RATIO 27 (6-25); CALCIUM 7.3 mg/dL (8.4-10.2); CARBON DIOXIDE 21 mmol/L (22-29); CHLORIDE 111 mmol/L (98-107); CREATININE, SERUM 0.63 mg/dL (0.72-1.25); EST GLOMERULAR FILTRATION RATE > 60 ML/MIN (60-); GLUCOSE 85 mg/dL (74-118); MAGNESIUM 1.7 MG/DL (1.3-2.1); PHOSPHORUS 3.5 MG/DL (2.3-4.7); SODIUM 140 mmol/L (136-145)
[2020-04-26 08:02] VITALS: BP 141/78
[2020-04-26 09:01] LABS: EOSINOPHILS % (MANUAL) 2 % (0-7); LYMPHOCYTES % (MANUAL) 43 % (19-48); MONOCYTES % (MANUAL) 12 % (3.4-9.0); NEUTROPHILS % (MANUAL) 43 % (40-74)
[2020-04-26 10:53] VITALS: BP 141/78
[2020-04-26] MEDS ORDERED: LACTULOSE SYRUP 20 GM/30 ML UDC PO ONE (11:30)
[2020-04-26 11:59] VITALS: BP 137/89
[2020-04-26] MEDS ORDERED: RIFAXIMIN 550 MG TABLET PO SCH (12:00)
[2020-04-26 16:17] VITALS: BP 150/83
== END 2020-04-26 18:32 | disposition home or self-care (01) | DRG 442 ==
LOC: ER 08:10 → ERHOLD 10:26 → IMCU 22:26
DX: K72.90 Hepatic failure, unspecified without coma (principal); K76.6 Portal hypertension; D61.818 Other pancytopenia; K70.30 Alcoholic cirrhosis of liver without ascites; F10.21 Alcohol dependence, in remission; Z20.822 Contact with and (suspected) exposure to COVID-19
CPT/HCPCS: 36415; 36600; 71045; 71046; 74177; 80053; 82140; 82550; 82553; 82805; 83605; 83735; 84100; 84484; 85025; 87040; 99284; J0696; J2405; J7030; J7121; Q9967; U0002

== ENCOUNTER 2020-06-13 08:00 | Emergency (ER) | payer OTHER ==
[~2020-06-13] VITALS: Ht 172.7 cm; Wt 113.4 kg
[2020-06-13 08:38] LABS: EOSINOPHILS # (AUTO) 0.1 (0.0-0.4); EOSINOPHILS % 3.3 % (0.0-6.0); HEMATOCRIT 35.8 % (38.2-49.6); HEMOGLOBIN 13.1 g/dL (14.0-18.0); LYMPHOCYTES # (AUTO) 1.3 (1.0-3.2); LYMPHOCYTES % 43.8 % (18.0-39.1); MEAN CORPUSCULAR HEMOGLOBIN 34.4 pg (28-32); MEAN CORPUSCULAR HGB CONC 36.6 g/dL (31-35); MONOCYTES # (AUTO) 0.2 (0.2-0.8); MONOCYTES % 7.2 % (4.4-11.3); NEUTROPHILS # (AUTO) 1.4 (2.1-6.9); NEUTROPHILS % 44.4 % (38.7-80.0); PLATELET COUNT 69 x10e3/uL (140-360); RED BLOOD COUNT 3.81 x10e6/uL (4.3-5.7)
[2020-06-13 09:07] LABS: ALANINE AMINOTRANSFERASE 20 IU/L (0-55); ALBUMIN 3.4 g/dL (3.5-5.0); ALBUMIN/GLOBULIN RATIO 0.9 (0.8-2.0); ALKALINE PHOSPHATASE 146 IU/L (40-150); ANION GAP 12.4 mmol/L (8-16); BLOOD UREA NITROGEN 10 mg/dL (7-26); BUN/CREATININE RATIO 15 (6-25); CALCIUM 8.4 mg/dL (8.4-10.2); CARBON DIOXIDE 25 mmol/L (22-29); CHLORIDE 105 mmol/L (98-107); CREATININE, SERUM 0.66 mg/dL (0.72-1.25); EST GLOMERULAR FILTRATION RATE > 60 ML/MIN (60-); GLUCOSE 111 mg/dL (74-118); POTASSIUM 3.4 mmol/L (3.5-5.1); SODIUM 139 mmol/L (136-145)
[2020-06-13 10:48] LABS: CLARITY,URINE CLEAR (CLEAR); COLOR,URINE YELLOW (YELLOW); LEUKOCYTE ESTERASE ,URINE NEGATIVE (NEGATIVE); NITRITE,URINE NEGATIVE (NEGATIVE); PROTEIN,URINE DIPSTICK 2+ (NEGATIVE)
[2020-06-13 10:49] LABS: KETONES,URINE TRACE (NEGATIVE); URINE UROBILINOGEN 1 mg/dL (0.2 - 1)
[2020-06-13 11:08] LABS: BACTERIA,URINE MODERATE /HPF; EPITHELIAL CELLS,URINE FEW /LPF; MUCUS,URINE MANY (RARE); RBC,URINE 0-5 /HPF (0-5); WBC,URINE (MAN) 0-5 /HPF (0-5)
[2020-06-13] MEDS ORDERED: CEPHALEXIN500 MG PO (11:29)
[2020-06-13 11:48] VITALS: BP 158/79
== END 2020-06-13 11:56 | disposition home or self-care (01) ==
LOC: ER 08:43
DX: R42 Dizziness and giddiness (principal); E72.4 Disorders of ornithine metabolism; K74.60 Unspecified cirrhosis of liver; E03.9 Hypothyroidism, unspecified; Z20.822 Contact with and (suspected) exposure to COVID-19
CPT/HCPCS: 36415; 70450; 71045; 80053; 81001; 82140; 84484; 85025; 93005; 99284; U0002

== ENCOUNTER 2020-09-30 11:31 | Inpatient (IN) | payer OTHER ==
[~2020-09-30] VITALS: Ht 172.7 cm; Wt 113.4 kg
[~2020-09-30 11:31] MED LIST changes: +CEPHALEXIN500 MG PO
[2020-09-30 12:27] LABS: BASOPHILS % 1.1 % (0.0-1.0); EOSINOPHILS % 1.5 % (0.0-6.0); HEMATOCRIT 35.8 % (38.2-49.6); HEMOGLOBIN 12.8 g/dL (14.0-18.0); LYMPHOCYTES # (AUTO) 0.8 (1.0-3.2); LYMPHOCYTES % 29.6 % (18.0-39.1); MEAN CORPUSCULAR HEMOGLOBIN 34.2 pg (28-32); MEAN CORPUSCULAR HGB CONC 35.8 g/dL (31-35); MEAN CORPUSCULAR VOLUME 95.7 fL (81-99); MONOCYTES # (AUTO) 0.3 (0.2-0.8); MONOCYTES % 9.1 % (4.4-11.3); NEUTROPHILS # (AUTO) 1.6 (2.1-6.9); PLATELET COUNT 100 x10e3/uL (140-360); RED BLOOD COUNT 3.74 x10e6/uL (4.3-5.7); RED CELL DISTRIBUTION WIDTH 15.4 % (11.7-14.4)
[2020-09-30 12:31] LABS: INR 1.53; PROTHROMBIN TIME 19.2 seconds (11.9-14.5)
[2020-09-30 12:32] LABS: PARTIAL THROMBOPLASTIN TIME 38.1 seconds (23.8-35.5)
[2020-09-30 12:35] LABS: ALBUMIN 3.1 g/dL (3.5-5.0); ALBUMIN/GLOBULIN RATIO 0.8 (0.8-2.0); ANION GAP 13.3 mmol/L (8-16); CALCIUM 7.7 mg/dL (8.4-10.2); CREATININE, SERUM 0.65 mg/dL (0.72-1.25); MAGNESIUM 1.9 MG/DL (1.3-2.1); POTASSIUM 4.3 mmol/L (3.5-5.1)
[2020-09-30 12:41] LABS: CREATINE KINASE MB 1.4 ng/mL (0-5.0)
[2020-09-30 12:58] LABS: CLARITY,URINE CLEAR (CLEAR); COLOR,URINE ORANGE (YELLOW)
[2020-09-30 12:59] LABS: KETONES,URINE NEGATIVE (NEGATIVE); LEUKOCYTE ESTERASE ,URINE NEGATIVE (NEGATIVE); NITRITE,URINE NEGATIVE (NEGATIVE); PROTEIN,URINE DIPSTICK 1+ (NEGATIVE); URINE UROBILINOGEN 1 mg/dL (0.2 - 1)
[2020-09-30 13:01] LABS: BACTERIA,URINE MANY /HPF; EPITHELIAL CELLS,URINE FEW /LPF; MUCUS,URINE MANY (RARE)
[2020-09-30] MEDS ORDERED: CEFTRIAXONE 1 GM in SODIUM CHLORIDE 0.9% 50ML 50 ML IV ONE (14:00)
[2020-09-30] MEDS ORDERED: LACTULOSE SYRUP 20 GM/30 ML UDC PO ONE (14:30)
[2020-09-30] MEDS ORDERED: SODIUM CHLORIDE 0.9% 500ML 500 ML IV ONE (15:30)
[2020-09-30] MEDS ORDERED: ONDANSETRON HCL INJ 2MG/ML 2ML 2 MG/ML VIAL IV PRN (15:45)
[2020-09-30] MEDS ORDERED: IOPAMIDOL 370 MG/ML 200 ML INFUS..BTL INJ ONE (15:54)
[2020-09-30] MEDS ORDERED: SODIUM CHLORIDE 0.9% 50ML 50 ML ONE (15:54)
[2020-09-30] MEDS: RIFAXIMIN 550 MG TABLET PO SCH (17:29)
[2020-09-30 19:56] VITALS: BP 142/66
[2020-09-30 20:22] LABS: CREATINE KINASE MB 1.3 ng/mL (0-5.0)
[2020-09-30 20:26] VITALS: BP 142/92
[2020-09-30] MEDS ORDERED: SODIUM CHLORIDE 0.9% 250ML 250 ML ONE (21:14)
[2020-09-30 21:37] VITALS: BP 142/92
[2020-09-30 21:39] VITALS: BP 142/92
[2020-09-30] MEDS: LACTULOSE SYRUP 20 GM/30 ML UDC PO SCH (21:45)
[2020-09-30] MEDS: CEFTRIAXONE 1 GM in SODIUM CHLORIDE 0.9% 50ML 50 ML IV SCH (21:45)
[2020-10-01] VITALS (7 sets, daily range): BP systolic 128–144; BP diastolic 61–80
[2020-10-01 06:47] LABS: EOSINOPHILS # (AUTO) 0.1 (0.0-0.4); EOSINOPHILS % 3.4 % (0.0-6.0); HEMATOCRIT 33.3 % (38.2-49.6); HEMOGLOBIN 11.7 g/dL (14.0-18.0); LYMPHOCYTES # (AUTO) 0.6 (1.0-3.2); LYMPHOCYTES % 27.5 % (18.0-39.1); MEAN CORPUSCULAR HEMOGLOBIN 34.2 pg (28-32); MEAN CORPUSCULAR HGB CONC 35.1 g/dL (31-35); MEAN CORPUSCULAR VOLUME 97.4 fL (81-99); MONOCYTES # (AUTO) 0.3 (0.2-0.8); MONOCYTES % 15.2 % (4.4-11.3); NEUTROPHILS # (AUTO) 1.1 (2.1-6.9); NEUTROPHILS % 52.4 % (38.7-80.0); PLATELET COUNT 56 x10e3/uL (140-360); RED BLOOD COUNT 3.42 x10e6/uL (4.3-5.7); RED CELL DISTRIBUTION WIDTH 15.2 % (11.7-14.4)
[2020-10-01 07:11] LABS: ANION GAP 10.7 mmol/L (8-16); CALCIUM 7.5 mg/dL (8.4-10.2); CREATININE, SERUM 0.65 mg/dL (0.72-1.25); POTASSIUM 3.7 mmol/L (3.5-5.1)
[2020-10-01 07:53] LABS: CREATINE KINASE MB 1.1 ng/mL (0-5.0)
[2020-10-01] MEDS: RIFAXIMIN 550 MG TABLET PO SCH ×2 (08:26→15:19)
[2020-10-01] MEDS: CEFTRIAXONE 1 GM in SODIUM CHLORIDE 0.9% 50ML 50 ML IV SCH ×2 (08:26→20:35)
[2020-10-01] MEDS: LACTULOSE SYRUP 20 GM/30 ML UDC PO SCH ×3 (08:26→18:00)
[2020-10-01] MEDS ORDERED: LACTULOSE SYRUP 20 GM/30 ML UDC PO SCH (15:00)
[2020-10-01] MEDS ORDERED: RIFAXIMIN 550 MG TABLET PO SCH (17:00)
[2020-10-02] VITALS (7 sets, daily range): BP systolic 124–145; BP diastolic 66–80
[2020-10-02 05:44] LABS: EOSINOPHILS # (AUTO) 0.1 (0.0-0.4); EOSINOPHILS % 3.7 % (0.0-6.0); HEMATOCRIT 33.2 % (38.2-49.6); HEMOGLOBIN 11.5 g/dL (14.0-18.0); LYMPHOCYTES # (AUTO) 0.7 (1.0-3.2); LYMPHOCYTES % 36.6 % (18.0-39.1); MEAN CORPUSCULAR HEMOGLOBIN 33.9 pg (28-32); MEAN CORPUSCULAR HGB CONC 34.6 g/dL (31-35); MEAN CORPUSCULAR VOLUME 97.9 fL (81-99); MONOCYTES # (AUTO) 0.2 (0.2-0.8); MONOCYTES % 12.6 % (4.4-11.3); NEUTROPHILS # (AUTO) 0.9 (2.1-6.9); NEUTROPHILS % 45.6 % (38.7-80.0); PLATELET COUNT 57 x10e3/uL (140-360); RED BLOOD COUNT 3.39 x10e6/uL (4.3-5.7)
[2020-10-02] MEDS ORDERED: LEVOTHYROXINE SODIUM 50 MCG TAB PO SCH (06:00)
[2020-10-02 06:22] LABS: ANION GAP 8.4 mmol/L (8-16); CALCIUM 7.5 mg/dL (8.4-10.2); CREATININE, SERUM 0.69 mg/dL (0.72-1.25); POTASSIUM 3.4 mmol/L (3.5-5.1)
[2020-10-02 09:05] LABS: EOSINOPHILS % (MANUAL) 8 % (0-7); LYMPHOCYTES % (MANUAL) 31 % (19-48); MONOCYTES % (MANUAL) 12 % (3.4-9.0); NEUTROPHILS % (MANUAL) 49 % (40-74); PLATELET ESTIMATE MODERATELY DECREASED; RBC MORPHOLOGY COMMENT NORMAL
[2020-10-02 09:06] LABS: PLATELET MORPHOLOGY COMMENT NORMAL
[2020-10-02] MEDS: CEFTRIAXONE 1 GM in SODIUM CHLORIDE 0.9% 50ML 50 ML IV SCH (09:10)
[2020-10-02] MEDS: LACTULOSE SYRUP 20 GM/30 ML UDC PO SCH ×2 (09:10→09:29)
[2020-10-02] MEDS: RIFAXIMIN 550 MG TABLET PO SCH (09:10)
== END 2020-10-02 16:30 | disposition home or self-care (01) | DRG 432 ==
LOC: ER 12:14 → ERHOLD 15:52 → MED/SURG3 18:28
DX: K70.30 Alcoholic cirrhosis of liver without ascites (principal); K72.00 Acute and subacute hepatic failure without coma; K76.6 Portal hypertension; R09.02 Hypoxemia; E03.9 Hypothyroidism, unspecified; F10.21 Alcohol dependence, in remission
CPT/HCPCS: 36415; 71045; 71260; 80048; 80053; 81001; 82140; 82550; 82553; 83605; 83735; 84484; 85025; 85379; 85610; 85730; 86850; 86900; 87040; 87086; 93005; 99284; J0696; J7050; Q9967; U0002